=== PATIENT | female | born 1955 | race Caucasian/White ===

== ENCOUNTER 2016-09-10 06:28 | Day surgery (SDC) | payer OTHER ==
[2016-09-10] MEDS ORDERED: Lactated Ringers 1,000 ML IV SCH (07:00)
[2016-09-10] MEDS ORDERED: fentaNYL 100 MCG/2 ML SDV ONE (07:44)
[2016-09-10] MEDS ORDERED: Propofol 200 MG/20 ML SDV ONE ×2 (07:44→08:22)
[2016-09-10 09:27] VITALS: BP 118/58
--- NOTE | 2016-09-14 09:19 | OR ---
DATE OF SURGERY: 09/10/2016. REFERRING PROVIDER: Jazmine Mandujano PREOPERATIVE DIAGNOSES: History of colon polyps. Last colonoscopy was about 6 years ago per the patient report. There is no known family history of colon cancer. POSTOPERATIVE DIAGNOSES: 1. Two small colon polyps removed at 60 cm from the anal verge. a. 4 x 2 mm polyp. b. 2 mm polyp. 2. Questionable very mild colitis/inflammation of the left or descending colon. Cold biopsy is taken from the area. 3. Tortuous colon. PROCEDURE: Colonoscopy with polypectomy x2 using cold forceps and cold biopsy x1 area of the left colon using cold forceps. SURGEON: Abe Syed M.D. ANESTHESIA: Monitored anesthesia care. BOWEL PREP: Good. DESCRIPTION OF PROCEDURE: Chelo is a 60-year-old female who was brought to the endoscopy suite after discussing risks and benefits of the procedure. Informed consent was obtained for conscious sedation and colonoscopy with or without biopsy and/or polypectomy. We also discussed possibility of missed lesions. Pre-procedure exam was unremarkable. IV, oxygen, and monitors were placed. The patient was placed in the left lateral decubitus position. Sedation was administered and a digital rectal exam was performed which was unremarkable. Colonoscope was passed into the rectum and slowly advanced all the way to the cecum. Cecum was viewed and photographed. The colonoscope was slowly withdrawn and the mucosa was closed observed in a direct circumferential manner. The ascending colon was unremarkable. The transverse colon was remarkable for 2 small polyps at 60 cm from the anal verge. One of these was 4 mm x 2 mm and the other 2 mm, both removed with cold forceps. The descending colon did reveal a small stretch of questionable very mild inflammation or colitis. Cold biopsies taken using cold forceps. The sigmoid colon was unremarkable. Retroflexion was performed and rectal mucosa was unremarkable. The patient did have a rather tortuous colon, which required multiple maneuvers, including turning the patient on her back and using abdominal pressure. Scope was removed. The patient tolerated the procedure well. The patient was monitored until that baseline status. Discharge instructions were reviewed and the patient was discharged in good condition. COMPLICATIONS: None. TOTAL TIME: 38 minutes. ESTIMATED BLOOD LOSS: About 1 mL. RECOMMENDATIONS/FOLLOWUP: We will await results of path report to determine ideal followup interval. I would like to kindly thank Rema Jewell D.O. and Jazmine Nazia, PAC for this referral. DMB: 09/10/2016 09:46:34 MODL: 09/10/2016 17:38:20 /[id number]
== END 2016-09-10 10:25 | disposition home or self-care (01) ==
LOC: VM.SDS 06:28
PROVIDERS: ATTEND Family Medicine
DX: Z12.11 Encounter for screening for malignant neoplasm of colon (principal); D12.6 Benign neoplasm of colon, unspecified; R23.3 Spontaneous ecchymoses; E78.00 Pure hypercholesterolemia, unspecified; Z88.8 Allergy status to other drugs, medicaments and biological substances; Z91.09 Other allergy status, other than to drugs and biological substances; Z91.018 Allergy to other foods; Z90.710 Acquired absence of both cervix and uterus; Z98.890 Other specified postprocedural states; Z79.899 Other long term (current) drug therapy
CPT/HCPCS: 45380; J2704; J3010; J7120

== ENCOUNTER 2020-10-17 10:45 | Emergency (ER) | payer MEDICARE, OTHER ==
[2020-10-17 11:42] LABS: CORONAVIRUS COVID-19 NAA NEGATIVE (NEGATIVE)
--- NOTE | 2020-10-17 11:59 | EDM.PDOC ---
ED HPI GENERAL MEDICAL PROBLEM - General Chief Complaint: Respiratory Problem Stated Complaint: Congestion Time Seen by Provider: 10/17/20 10:54 Source of Information: Reports: Patient - History of Present Illness INITIAL COMMENTS - FREE TEXT/NARRATIVE: Chelo is a 64 y/o female who was sent to the ER to be seen after she called the [facility] and advised them that she has not had any sense of taste or smell since last Wednesday. She has had congestion and a runny nose along wiht a mild cough and a sore throat. Over the weekend she did have some abdominal upset and diarrhea, but none since then. Also feels a bit chilled and thinks her temp is rising. This AM she got a bad headache and eye pressure. - Related Data Allergies Allergy/AdvReac Type Severity Reaction Status Date / Time aloe vera [From Vagisil] Allergy Other Verified 10/10/20 10:50 benzocaine [From Vagisil] Allergy Other Verified 10/10/20 10:50 hydrocodone Allergy Cannot Verified 10/10/20 10:50 Remember ibuprofen [From Motrin] Allergy Nausea Verified 10/10/20 10:50 lactose Allergy Other Verified 10/10/20 10:50 mineral oil [From Vagisil] Allergy Other Verified 10/10/20 10:50 oxycodone Allergy Other Verified 10/10/20 10:50 resorcinol [From Vagisil] Allergy Other Verified 10/10/20 10:50 starch [From Vagisil] Allergy Other Verified 10/10/20 10:50 vitamin E (d-alpha Allergy Other Verified 10/10/20 10:50 tocopherol) [From Vagisil] vitamins A and D Allergy Other Verified 10/10/20 10:50 [From Vagisil] Envirnmental Allergy Itching Uncoded 10/10/20 10:50 green peppers Allergy Other Uncoded 10/10/20 10:50 Home Meds: Home Meds Acetaminophen [Tylenol Extra Strength] 1 - 2 tab PO Q4H PRN 09/08/16 [History] Naproxen Sodium [Aleve] 1 - 2 tab PO BID 09/08/16 [History] Propylene Glycol [Lubricant Eye Drop] 1 drop EYEBOTH Q2H PRN 09/08/16 [History] Tetrahydroz/Dext 70/Peg 400/Pv [Visine Advanced Eye Drop] 1 - 2 drop EYEBOTH BID PRN 09/08/16 [History] Biotin 5 mg PO DAILY 09/10/20 [History] Cinnamon Bark 1 gm PO DAILY 09/10/20 [History] Collagenase Clostridium Hist. [Collagenase] 1 each PO DAILY 09/10/20 [History] Garlic 1 each PO DAILY 09/10/20 [History] Ginkgo Biloba 40 mg PO DAILY 09/10/20 [History] Glucosam/Chond/Collagen/Hyalur [Glucosamine Chondroitin] 1 each PO TID 09/10/20 [History] Multivitamin 1 each PO DAILY 09/10/20 [History] [place]-3 Fatty Acids [Maxepa] 500 mg PO DAILY 09/10/20 [History] Turmeric 1 gm PO DAILY 09/10/20 [History] Vitamin B Complex 1 each PO DAILY 09/10/20 [History] [place] Hailee Extract 2 gm MC DAILY 09/18/20 [History] Cefuroxime Axetil [Ceftin] 500 mg PO BID #20 tablet 10/17/20 [Rx] Past Medical History HEENT History: Reports: Hard of Hearing, Impaired Vision, Other (See Below) Other HEENT History: Herpes Zoster virus with opthalmic complication Cardiovascular History: Reports: High Cholesterol Respiratory History: Reports: None Gastrointestinal History: Reports: Colon Polyp Genitourinary History: Reports: Other (See Below) Other Genitourinary History: vulvar pain INTERPRETATIVE DANCER History: Reports: Other (See Below) Other INTERPRETATIVE DANCER History: Vulvar pain Musculoskeletal History: Reports: Osteoarthritis, Other (See Below) Other Musculoskeletal History: Carpal tunnel syndrome. Plantar fascial fibromatosis. 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 Dermatologic History: Reports: Other (See Below) - Past Surgical History HEENT Surgical History: Reports: Oral Surgery Cardiovascular Surgical History: Reports: None Respiratory Surgical History: Reports: None GI Surgical History: Reports: Colonoscopy Female Surgical History: Reports: Hysterectomy, Salpingo-Oophorectomy, Other (See Below) Other Female Surgeries/Procedures: lap node dissection robotic omentectomy, pelvic and esvin aortic lymphadenectomy, hysteroscopy Musculoskeletal Surgical History: Reports: Carpal Tunnel Social & Family History - Family History Cardiac: Reports: CAD, Hypertension Other Cardiac Family History: CAD-mother. HTN-mother, sister Respiratory: Reports: Asthma, Sleep Apnea Other Respiratory Family Hisory: asthma-sister. apnea-mother, sister Musculoskeletal: Reports: Arthritis, Back pain, Chronic Other Musculoskeletal Family History: arthritis-mother, sister, brother. chronic back pain-father Neurological: Reports: Migraines, MS Other Neurological Family History: migraines and MS-sister Endocrine/Metabolic: Reports: Diabetes, Type I, Obesity/MBI 30+ Other Endocrine/Metabolic Family History: diabetes-mother, sister. 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[employer].) ED ROS GENERAL - Review of Systems Review Of Systems: See Below Constitutional: Reports: Chills, Fatigue HEENT: Reports: No Symptoms, Sinus Problem, Throat Pain, Other (Eye pressure) Respiratory: Reports: Cough Cardiovascular: Reports: No Symptoms Endocrine: Reports: No Symptoms GI/Abdominal: Reports: Abdominal Pain, Diarrhea (x1), Decreased Appetite : Reports: No Symptoms Musculoskeletal: Reports: No Symptoms Skin: Reports: No Symptoms Neurological: Reports: Headache Psychiatric: Reports: No Symptoms Hematologic/Lymphatic: Reports: No Symptoms Immunologic: Reports: No Symptoms ED EXAM, GENERAL - Physical Exam Exam: See Below General Appearance: Alert, WD/WN, No Apparent Distress (Elderly female. Pleasant.) Eye Exam: Bilateral Eye: EOMI Ears: Normal External Exam, Normal Canal, Hearing Grossly Normal Ear Exam: Bilateral Ear: TM Dull (note air fluid levels) Nose: Normal Inspection, Other (nasal mucosa irritated) Throat/Mouth: Normal Inspection, Normal Lips, Normal Teeth, Normal Voice Head: Atraumatic, Normocephalic Neck: Normal Inspection, Supple, Non-Tender Respiratory/Chest: No Respiratory Distress, Lungs Clear, Chest Non-Tender Cardiovascular: Normal Peripheral Pulses, Regular Rate, Rhythm, No Murmur GI/Abdominal: Normal Bowel Sounds, Soft, Non-Tender, No Mass (Female) Exam: Deferred Rectal (Female) Exam: Deferred Back Exam: Normal Inspection Extremities: Normal Inspection, Normal Range of Motion, Normal Capillary Refill Neurological: Alert, Oriented, CN II-XII Intact, Normal Cognition, Normal Gait Psychiatric: Normal Affect, Normal Mood Skin Exam: Warm, Dry, Intact, Normal Color Lymphatic: No Adenopathy Course - Vital Signs Text/Narrative:: 1054 COVID test was done per RN prior to FILM AND VIDEO GRAPHICS DESIGNER seeing the patient. 1200 COVID results neg. Inf A/B neg/neg. Patient seen by the FILM AND VIDEO GRAPHICS DESIGNER. Results r eviewed with patient. Will treat for a Sinusitis with Ceftin and OTC meds. Questions answered. Reassurance given. She was given discharge instructions and left the ER in stable condition. - Orders/Labs/Meds Labs: Laboratory Tests 10/17/20 Range/Units 10:57 Influenza Type A RNA Negative (NEGATIVE) Influenza Type B RNA Negative (NEGATIVE) SARS-CoV-2 RNA (JEB) Negative (NEGATIVE) Departure - Departure Time of Disposition: 11:53 Disposition: Home, Self-Care 01 Condition: Good Clinical Impression: Sinusitis Qualifiers: Sinusitis location: unspecified location Chronicity: acute Recurrence: not specified as recurrent Qualified Code(s): J01.90 - Acute sinusitis, unspecified - Discharge Information *PRESCRIPTION DRUG MONITORING PROGRAM REVIEWED*: Not Applicable *COPY OF PRESCRIPTION DRUG MONITORING REPORT IN PATIENT REBECCA: Not Applicable Prescriptions: Cefuroxime Axetil [Ceftin] 500 mg PO BID #20 tablet Instructions: Sinusitis, Adult, Probiotics Referrals: Arnoldo Tee PA-C [Primary Care Provider] - Forms: ED Department Discharge - Assessment/Plan Assessment:: 1)Acute Sinusitis 2)Negative COVID test Plan: -Ceftin 500mg oral twice daily for 10 days #20(Rx) -Use Pseudoephedrine as needed for congestion -Use an antihistamine such as Claritin, Zyrtec, or Jennifer to help dry up your runny nose as needed -Try Flonase or Nasocort nasal spray -Saline nasal rinses with Neti-pot or Megan-Med rinse bottle -Rest -Stay well hydrated -Return to the clinic if symptoms not better not or come back to the ER for any concerns
[2020-10-17 20:44] VITALS: BP 137/84; PULSE 107
== END 2020-10-17 12:13 | disposition home or self-care (01) ==
LOC: VM.ED 10:45
DX: J01.90 Acute sinusitis, unspecified (principal); E66.9 Obesity, unspecified; Z20.822 Contact with and (suspected) exposure to COVID-19; Z91.013 Allergy to seafood; Z88.4 Allergy status to anesthetic agent; Z88.6 Allergy status to analgesic agent; Z88.5 Allergy status to narcotic agent; Z91.048 Other nonmedicinal substance allergy status; Z88.8 Allergy status to other drugs, medicaments and biological substances; Z79.899 Other long term (current) drug therapy
CPT/HCPCS: 0240U; 99283

== ENCOUNTER 2021-02-17 13:29 | Emergency (ER) | payer MEDICARE, OTHER ==
--- NOTE | 2021-02-17 13:58 | EDM.PDOC ---
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 the door struck her right great toe and hit her toenail. Some bleeding ensued. Pain and throbbing in the distal right great toe continued. Unable to wear a shoe due to pain, Is limping due to it. Last tetnaus as 8 years ago. No other injury. not on a blood thinner Onset: Today Duration: Hour(s): Location: Reports: Lower Extremity, Right Severity: Moderate Right Toe-Hailux Pain Score (Numeric/FACES): 3 - Related Data Allergies Allergy/AdvReac Type Severity Reaction Status Date / Time aloe vera [From Vagisil] Allergy Other Verified 02/17/21 14:19 benzocaine [From Vagisil] Allergy Other Verified 02/17/21 14:19 hydrocodone Allergy Cannot Verified 02/17/21 14:19 Remember ibuprofen [From Motrin] Allergy Nausea Verified 02/17/21 14:19 lactose Allergy Other Verified 02/17/21 14:19 mineral oil [From Vagisil] Allergy Other Verified 02/17/21 14:19 oxycodone Allergy Other Verified 02/17/21 14:19 resorcinol [From Vagisil] Allergy Other Verified 02/17/21 14:19 starch [From Vagisil] Allergy Other Verified 02/17/21 14:19 vitamin E (d-alpha Allergy Other Verified 02/17/21 14:19 tocopherol) [From Vagisil] vitamins A and D Allergy Other Verified 02/17/21 14:19 [From Vagisil] Envirnmental Allergy Itching Uncoded 02/17/21 14:19 green peppers Allergy Other Uncoded 02/17/21 14:19 Home Meds: Home Meds Acetaminophen [Tylenol Extra Strength] 1 - 2 tab PO Q4H PRN 09/08/16 [History] Naproxen Sodium [Aleve] 1 - 2 tab PO BID 09/08/16 [History] Propylene Glycol [Lubricant Eye Drop] 1 drop EYEBOTH Q2H PRN 09/08/16 [History] Tetrahydroz/Dext 70/Peg 400/Pv [Visine Advanced Eye Drop] 1 - 2 drop EYEBOTH BID PRN 09/08/16 [History] Biotin 5 mg PO DAILY 09/10/20 [History] Cinnamon Bark 1 gm PO DAILY 09/10/20 [History] Collagenase Clostridium Hist. [Collagenase] 1 each PO DAILY 09/10/20 [History] Garlic 1 each PO DAILY 09/10/20 [History] Ginkgo Biloba 40 mg PO DAILY 09/10/20 [History] Glucosam/Chond/Collagen/Hyalur [Glucosamine Chondroitin] 1 each PO TID 09/10/20 [History] Multivitamin 1 each PO DAILY 09/10/20 [History] [place]-3 Fatty Acids [Maxepa] 500 mg PO DAILY 09/10/20 [History] Turmeric 1 gm PO DAILY 09/10/20 [History] Vitamin B Complex 1 each PO DAILY 09/10/20 [History] [place] Hailee Extract 2 gm MC DAILY 09/18/20 [History] Acetaminophen/Codeine [Tylenol with Codeine No.3 300MG/30MG] 1 tab PO Q4H PRN #10 tab 02/17/21 [Rx] Past Medical History HEENT History: Reports: Hard of Hearing, Impaired Vision, Other (See Below) Other HEENT History: Herpes Zoster virus with opthalmic complication Cardiovascular History: Reports: High Cholesterol Respiratory History: Reports: None Gastrointestinal History: Reports: Colon Polyp Genitourinary History: Reports: Other (See Below) Other Genitourinary History: vulvar pain ORE MINER BLASTING History: Reports: Other (See Below) Other ORE MINER BLASTING History: Vulvar pain Musculoskeletal History: Reports: Osteoarthritis, Other (See Below) Other Musculoskeletal History: Carpal tunnel syndrome. Plantar fascial fibromatosis. 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 Dermatologic History: Reports: Other (See Below) - Past Surgical History HEENT Surgical History: Reports: Oral Surgery Cardiovascular Surgical History: Reports: None Respiratory Surgical History: Reports: None GI Surgical History: Reports: Colonoscopy Female Surgical History: Reports: Hysterectomy, Salpingo-Oophorectomy, Other (See Below) Other Female Surgeries/Procedures: lap node dissection robotic omentectomy, pelvic and esvin aortic lymphadenectomy, hysteroscopy Musculoskeletal Surgical History: Reports: Carpal Tunnel Social & Family History - Family History Cardiac: Reports: CAD, Hypertension Other Cardiac Family History: CAD-mother. HTN-mother, sister Respiratory: Reports: Asthma, Sleep Apnea Other Respiratory Family Hisory: asthma-sister. apnea-mother, sister Musculoskeletal: Reports: Arthritis, Back pain, Chronic Other Musculoskeletal Family History: arthritis-mother, sister, brother. chronic back pain-father Neurological: Reports: Migraines, MS Other Neurological Family History: migraines and MS-sister Endocrine/Metabolic: Reports: Diabetes, Type I, Obesity/MBI 30+ Other Endocrine/Metabolic Family History: diabetes-mother, sister. 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[employer].) Review of Systems - Review of Systems Review Of Systems: See Below Constitutional: Reports: No Symptoms Eyes: Reports: No Symptoms Ears: Reports: No Symptoms Nose: Reports: No Symptoms Mouth/Throat: Reports: No Symptoms Respiratory: Reports: No Symptoms Cardiovascular: Reports: No Symptoms GI/Abdominal: Reports: No Symptoms Genitourinary: Reports: No Symptoms Musculoskeletal: Reports: Foot Pain (right great toe) Skin: Reports: Other (bleeding from rigth great toe) ED EXAM, GENERAL - Physical Exam Exam: See Below Exam Limited By: No Limitations General Appearance: Alert, WD/WN, No Apparent Distress Eye Exam: Bilateral Eye: EOMI, Normal Inspection, PERRL Ears: Normal External Exam, Normal Canal, Hearing Grossly Normal Nose: Normal Inspection, Normal Mucosa, No Blood Throat/Mouth: Normal Inspection, Normal Lips, Normal Teeth Head: Atraumatic Neck: Normal Inspection Respiratory/Chest: No Respiratory Distress, Lungs Clear, Normal Breath Sounds, Chest Non-Tender Cardiovascular: Normal Peripheral Pulses, Regular Rate, Rhythm, No Murmur Extremities: Other (right great toe with pain to palpation of the distal phalanyx. nail lifted distally with some serous oozing. no bleeding, sensation intact, capillary refill normal < 2 sec. fungal nail noted. no pain MTP or rest of foot. ) Course - Vital Signs Last Recorded V/S: Last Vital Signs Temp 36.9 C 02/17/21 13:30 Pulse 76 02/17/21 13:30 Resp 16 02/17/21 13:30 BP 120/64 02/17/21 13:30 Pulse Ox 97 02/17/21 13:30 - Radiology Interpretation Free Text/Narrative:: preliminary read, no acute on x-ray by author - Re-Assessments/Exams Free Text/Narrative Re-Assessment/Exam: 02/17/21 14:00 tetanus is up to date. Will get an x-ray of the toe to rule out open fracture. Nothing to suture, will clean and apply dermabond. post op shoe given 02/17/21 15:26 no fracture seen. discussed limited pain medications. prefers tylenol with codeine. return for signs of infection Departure - Departure Time of Disposition: 15:24 Disposition: Home, Self-Care 01 Clinical Impression: Nail bed injury, Injury of toe - Discharge Information *PRESCRIPTION DRUG MONITORING PROGRAM REVIEWED*: Not Applicable *COPY OF PRESCRIPTION DRUG MONITORING REPORT IN PATIENT REBECCA: Not Applicable Prescriptions: Acetaminophen/Codeine [Tylenol with Codeine No.3 300MG/30MG] 1 tab PO Q4H PRN #10 tab PRN Reason: Pain Additional Instructions: Use the post op shoe for ambulation as long as needed so you are not limping. Ice, elevate the area. Use over the counter pain medication as needed. The glue will peel off on it's own. Do not apply antibiotic ointment. Use the pain medication as needed if tylenol does not help Sepsis Event Note (ED) - Focused Exam Vital Signs: Vital Signs Temp Pulse Resp BP Pulse Ox 02/17/21 13:30 36.9 C 76 16 120/64 97
[2021-02-17 14:42] VITALS: BP 120/64; PULSE 76
--- NOTE | 2021-02-17 15:18 | CR ---
[id number] RAD/RAD Toes Right EXAM: 3 VIEWS RIGHT 1ST DIGIT. INDICATION: TRAUMA COMPARISON: None. DISCUSSION: No fracture, dislocation or other acute osseous abnormality. Moderate degenerative changes of the 1st metatarsophalangeal joint. IMPRESSION: 1. Moderate degenerative changes of the 1st metatarsal phalangeal joint. Rodo Walls DO 02/17/21 [id number] Thank you for allowing us to participate in the care of your patient.
== END 2021-02-17 15:46 | disposition home or self-care (01) ==
LOC: VM.ED 13:29
DX: S99.921A Unspecified injury of right foot, initial encounter (principal); M19.90 Unspecified osteoarthritis, unspecified site; E66.9 Obesity, unspecified; Z68.33 Body mass index [BMI] 33.0-33.9, adult; Z91.048 Other nonmedicinal substance allergy status; Z88.8 Allergy status to other drugs, medicaments and biological substances; Z88.5 Allergy status to narcotic agent; Z88.6 Allergy status to analgesic agent; Z91.011 Allergy to milk products; Z91.018 Allergy to other foods; Z79.899 Other long term (current) drug therapy; W23.0XXA Caught, crushed, jammed, or pinched between moving objects, initial encounter
CPT/HCPCS: 73660-T5; 99283; 99283-25

== ENCOUNTER 2021-06-26 12:48 | Day surgery (SDC) | payer MEDICARE, OTHER ==
[~2021-06-26 12:48] MED LIST: Lactated Ringers 1,000 ML IV SCH; Sodium Chloride 0.9% 10 ML Syringe FLUSH PRN
[2021-06-26] MEDS ORDERED: Propofol 200 MG/20 ML SDV ONE (13:17)
[2021-06-26] MEDS ORDERED: fentaNYL 100 MCG/2 ML SDV ONE (13:17)
[2021-06-26 15:00] VITALS: BP 144/71; PULSE 60
--- NOTE | 2021-06-27 07:20 | OR ---
PREOPERATIVE DIAGNOSIS: Dysphagia in the lower esophageal area with pills and more recently with certain foods. There is concern for possible esophageal stricture. The patient does use naproxen 1 tab about every 8 hours for her piriformis syndrome. This is the patient's first esophagogastroduodenoscopy. There is a positive family history of dysphagia in brother who requires dilation procedures. POSTOPERATIVE DIAGNOSES: 1. Mild gastritis, most prominent in the fundus and antrum areas. Both areas reveal some tiny superficial ulcerations with mildly friable mucosal lining. Cold biopsies taken from antrum for path and Helicobacter pylori. 2. Mild duodenitis. Cold biopsy x2 bites taken. 3. No significant esophagitis, hiatal hernia, strictures, or rings appreciated to the lower esophagus or GE junction. PROCEDURE: Esophagogastroduodenoscopy with cold biopsy x2 sites (antrum and duodenum). SURGEON: Abe Syed M.D. ANESTHESIA: Monitored anesthesia care. DESCRIPTION OF PROCEDURE: Chelo is a 65-year-old female who was brought to the endoscope suite after discussion of risks and benefits (including but not limited to reaction to medication, bleeding, infection, aspiration, perforation). Informed consent was obtained for monitored anesthesia care and esophagogastroduodenoscopy along with possible biopsy and/or dilatation. Pre-procedure exam including oral cavity was unremarkable. IV, oxygen, and monitors were placed. Patient was placed in the left lateral position and sedation was administered. A bite block was placed gently and scope lightly lubricated and passed through the bite block and over the tongue. Hypopharynx and vocal cords were visualized and unremarkable. Scope was passed through the cricopharynx and into the esophagus. The scope was then passed through the distal esophagus and the GE junction was visualized and photographed. The GE junction was unremarkable. The scope was advanced into the stomach and gastric kirkpatrick was suctioned. Pylorus was identified and intubated and then the scope was advanced to the third portion of the duodenum. The second and third portions of the duodenum were unremarkable except for the transition between the duodenal bulb and second portion, which revealed some mild duodenitis. Biopsies were taken from this area as well as the duodenal bulb, which revealed some mild duodenitis as well. The scope was brought back into the stomach, and the pylorus and antrum were remarkable for mild antritis with some tiny superficial antral ulcerations. Biopsies for H pylori and path were obtained from the antrum, including one of these tiny ulceration sites. The scope was then retroflexed to visualize the angularis, fundus, body, and cardia. The fundus revealed some mild gastritis with some tiny petechial areas of hemorrhage, although not acutely bleeding. The stomach was desufflated of air and then the scope was slowly withdrawn. Esophagus was closely visualized during withdrawal all the way to the posterior pharynx. The esophagus was otherwise unremarkable. The patient tolerated the procedure well and went to recovery in stable condition. The patient was monitored until at baseline status. Findings and discharge instructions were reviewed and the patient was discharged in good condition. COMPLICATIONS: None. TOTAL TIME: 9 minutes. ESTIMATED BLOOD LOSS: 1 to 2 mL. RECOMMENDATIONS/FOLLOWUP: We will send letter with results from the biopsy sites. In the meantime, I would like the patient to go on PPI for GI protection given her chronic naproxen use. Prescription was done for omeprazole 20 mg daily. She can follow up with PCP if symptoms not improving. If dysphagia ongoing, could consider workup for possible achalasia. I would like to kindly thank Arnoldo Tee for this referral. DMB: 06/26/2021 15:03:33 MODL: 06/26/2021 15:51:54 /[id number]
[2021-07-17] MEDS ORDERED: Lactated Ringers 1,000 ML IV SCH (07:00)
== END 2021-06-26 15:44 | disposition home or self-care (01) ==
LOC: VM.SDS 12:48
PROVIDERS: ATTEND Family Medicine
DX: K29.90 Gastroduodenitis, unspecified, without bleeding (principal); K31.89 Other diseases of stomach and duodenum; K25.9 Gastric ulcer, unspecified as acute or chronic, without hemorrhage or perforation; G57.00 Lesion of sciatic nerve, unspecified lower limb; E78.5 Hyperlipidemia, unspecified; Z79.899 Other long term (current) drug therapy; Z88.5 Allergy status to narcotic agent; Z88.8 Allergy status to other drugs, medicaments and biological substances; Z91.048 Other nonmedicinal substance allergy status; Z91.018 Allergy to other foods; E66.9 Obesity, unspecified; Z68.32 Body mass index [BMI] 32.0-32.9, adult
CPT/HCPCS: 00731; 88305; J2704; J3010; J7120

== ENCOUNTER 2021-08-04 18:27 | Emergency (ER) | payer MEDICARE, OTHER ==
[2021-08-04 18:43] VITALS: BP 131/83; PULSE 123
[2021-08-04 19:30] LABS: CORONAVIRUS COVID-19 NAA NEGATIVE (NEGATIVE); RESPIRATORY SYNCYTIAL VIR NAA NEGATIVE (NEGATIVE)
[2021-08-04] MEDS ORDERED: Take Home: Doxycycline 100 MG Tab, 4 Tab Pack PO ONE (19:32)
== END 2021-08-04 19:50 | disposition home or self-care (01) ==
LOC: VM.ED 18:27
DX: J22 Unspecified acute lower respiratory infection (principal); E78.00 Pure hypercholesterolemia, unspecified; E66.9 Obesity, unspecified; Z68.30 Body mass index [BMI] 30.0-30.9, adult; Z88.5 Allergy status to narcotic agent; Z91.011 Allergy to milk products; Z91.048 Other nonmedicinal substance allergy status; Z88.8 Allergy status to other drugs, medicaments and biological substances; Z20.822 Contact with and (suspected) exposure to COVID-19
CPT/HCPCS: 0241U; 99283; 99284; A9270-GY

== ENCOUNTER 2021-11-27 10:16 | Day surgery (SDC) | payer MEDICARE, OTHER ==
[2021-11-27] MEDS: Lactated Ringers 1,000 ML IV SCH (10:51)
[2021-11-27] MEDS ORDERED: fentaNYL 100 MCG/2 ML SDV ONE (11:07)
[2021-11-27] MEDS ORDERED: Propofol 200 MG/20 ML SDV ONE ×3 (11:07→12:39)
[2021-11-27 13:56] VITALS: BP 119/59; PULSE 50
== END 2021-11-27 15:00 | disposition home or self-care (01) ==
LOC: VM.SDS 10:16
PROVIDERS: ATTEND Family Medicine
DX: Z12.11 Encounter for screening for malignant neoplasm of colon (principal); D12.0 Benign neoplasm of cecum; K64.9 Unspecified hemorrhoids; E66.9 Obesity, unspecified; H91.90 Unspecified hearing loss, unspecified ear; E78.00 Pure hypercholesterolemia, unspecified; Z98.890 Other specified postprocedural states; Z68.32 Body mass index [BMI] 32.0-32.9, adult; Z79.899 Other long term (current) drug therapy
CPT/HCPCS: 00811; 88305; J2704; J3010; J7120

== ENCOUNTER 2023-04-01 17:42 | Emergency (ER) | payer MEDICARE, OTHER ==
[2023-04-01] MEDS ORDERED: Proparacaine 0.5% Ophth Soln 15 ML Bottle EYELF PRN (18:40)
[2023-04-01] MEDS ORDERED: Fluorescein 1 MG Ophth Strip EYELF ONE (18:40)
[2023-04-01] MEDS ORDERED: Ciprofloxacin 0.3% Ophth Soln 2.5 ML Bottle EYELF ONE (18:51)
[2023-04-01 18:57] VITALS: BP 152/61; PULSE 74
== END 2023-04-01 19:14 | disposition home or self-care (01) ==
LOC: VM.ED 17:42
DX: S05.02XA Injury of conjunctiva and corneal abrasion without foreign body, left eye, initial encounter (principal); E78.00 Pure hypercholesterolemia, unspecified; E66.9 Obesity, unspecified; Z79.899 Other long term (current) drug therapy; Z91.018 Allergy to other foods; Z88.5 Allergy status to narcotic agent; Z91.048 Other nonmedicinal substance allergy status
CPT/HCPCS: 99283; A9270; J3490